=== PATIENT | male | born 1975 | race Caucasian/White ===

== ENCOUNTER 2024-02-28 02:50 | Emergency (ER) | payer BC, SELFPAY ==
[2024-02-28 02:50] VITALS: BMI 34.2
[2024-02-28 02:52] VITALS: BP 134/84
--- NOTE | 2024-02-28 03:07 | ED.GENMED ---
History of Present Illness
<LETICIA Garcia - Last Filed: 02/28/24 03:42>
General
Chief Complaint: Abdominal Pain
Time Seen by Provider: 02/28/24 03:06
History of Present Illness
History of Present Illness:
Patient is a 48 year old male with a PMH of gallstones presenting to the ED with complaints of abdominal pain x 5 hours. He said the pain started around 1000pm and has gotten progressively worse over time. He tried Aleve but it did not alleviate
symptoms. The pain is rated a 9/10 and described as sharp in the RUQ and has burning pain that radiates to the LUQ and the R flank. He stated the burning pain was constant but the sharp pain comes and goes. He admits to nausea and dry heaving but no
vomiting. His last BM was in the morning and normal, and his last meal was around 6pm which was chicken. Patient denies any fever chest pain palpitations sob changes in bm.
Patient has a PMH of gallstones which were shown on an ultrasound in October. He has a history of alcohol abuse and is on a high protein low carb diet. He takes Ozempic and has a history of bariatric surgery.
Review of Systems
<LETICIA Garcia - Last Filed: 02/28/24 03:42>
Review of Systems
Constitutional: Reports no symptoms
Respiratory: Reports no symptoms
Cardiac: Reports no symptoms
ABD/GI: Reports abdominal pain and nausea
: Reports no symptoms
Neurological: Reports no symptoms
Phy Exam
<LETICIA Garcia - Last Filed: 02/28/24 03:42>
General Physical Exam
General Presentation: well appearing
General age: appears stated age
General Habitus: normal
General Mental: alert
Cardiovascular Exam
Cardiovascular Exam: regular rate/rhythm, no edema, no gallop, no JVD and no murmur
Pulmonary Exam
Pulmonary Exam: lungs clear, no respiratory distress, no rales, chest non tender, no crackles, no rhonchi, no stridor, no wheezing and no cough
Gastrointestinal Exam
Gastrointestinal Exam: normal bowel sounds, soft, no organomegaly, no pulsatile mass, non distended, cva tenderness (R CVA tenderness ) and tender
Palpation: left upper quadrant: Moderate tenderness (RLQ pain the worst ), left lower quadrant: Mild tenderness, right upper quadrant: Moderate tenderness (RLQ pain the worst ) and right lower quadrant: Mild tenderness
Course
<LETICIA Garcia - Last Filed: 02/28/24 03:42>
Orders/Labs/Results
Orders:
Orders
02/28/24 03:14
IV Insert/Care/Rem.- Treatment PRN
02/28/24 03:15
Complete Blood Count/With Diff Urgent
Urinalysis Reflex To Culture Urgent
Date Specimen was Collected: 02/28/24
Time Specimen was Collected: 03:14
02/28/24 03:49
Ketorolac [Toradol] 30 mg IV NOW STA
Pantoprazole [Protonix IV] 40 mg IV NOW STA
02/28/24 03:50
US Abdomen Complete/Upper Urgent
Comment:
Reason For Exam: acute RUQ to R flank pain w nausea
02/28/24 04:06
Comprehensive Metabolic Panel Urgent
Comment: REDRAW
Lipase Urgent
Comment: REDRAW
Abnormal Lab Results
02/28/24 02/28/24
03:15 04:06
RBC 4.24 L 10^6/uL
(4.70-6.10)
Hgb 12.5 L g/dL
(13.0-18.0)
Hct 37.2 L %
(39.0-52.0)
RDW 16.2 H %
(11.5-14.5)
MPV 11.4 H fL
(7.4-10.4)
Absolute Neuts (auto) 6.8 H 10^3/uL
(1.4-6.5)
Lymphocytes % 18.5 L %
(20.5-51.1)
BUN 24 H mg/dl
(9-20)
Total Bilirubin 2.0 H mg/dl
(0.2-1.3)
AST 169 H U/L
(17-59)
ALT 140 H U/L
(0-50)
Urine Ketones 2+ A
(Negative)
02/28/24 03:15
02/28/24 04:06
Vital Signs
Initial and Last Documented VS:
Initial Vital Signs
Temp Pulse Resp BP Pulse Ox
98.2 F 78 24 134/84 100
02/28/24 02:52 02/28/24 02:52 02/28/24 02:52 02/28/24 02:52 02/28/24 02:52
Last Documented Vital Signs
Temp Pulse Resp BP Pulse Ox
98.2 F 64 16 116/61 99
02/28/24 02:52 02/28/24 06:24 02/28/24 06:24 02/28/24 06:24 02/28/24 06:24
<Marsha Ayers DO - Last Filed: 02/28/24 06:53>
Orders/Labs/Results
Orders:
Orders
02/28/24 03:14
IV Insert/Care/Rem.- Treatment PRN
02/28/24 03:15
Complete Blood Count/With Diff Urgent
Urinalysis Reflex To Culture Urgent
Date Specimen was Collected: 02/28/24
Time Specimen was Collected: 03:14
02/28/24 03:49
Ketorolac [Toradol] 30 mg IV NOW STA
Pantoprazole [Protonix IV] 40 mg IV NOW STA
02/28/24 03:50
US Abdomen Complete/Upper Urgent
Comment:
Reason For Exam: acute RUQ to R flank pain w nausea
02/28/24 04:06
Comprehensive Metabolic Panel Urgent
Comment: REDRAW
Lipase Urgent
Comment: REDRAW
Abnormal Lab Results
02/28/24 02/28/24
03:15 04:06
RBC 4.24 L 10^6/uL
(4.70-6.10)
Hgb 12.5 L g/dL
(13.0-18.0)
Hct 37.2 L %
(39.0-52.0)
RDW 16.2 H %
(11.5-14.5)
MPV 11.4 H fL
(7.4-10.4)
Absolute Neuts (auto) 6.8 H 10^3/uL
(1.4-6.5)
Lymphocytes % 18.5 L %
(20.5-51.1)
BUN 24 H mg/dl
(9-20)
Total Bilirubin 2.0 H mg/dl
(0.2-1.3)
AST 169 H U/L
(17-59)
ALT 140 H U/L
(0-50)
Urine Ketones 2+ A
(Negative)
02/28/24 03:15
02/28/24 04:06
Vital Signs
Initial and Last Documented VS:
Initial Vital Signs
Temp Pulse Resp BP Pulse Ox
98.2 F 78 24 134/84 100
02/28/24 02:52 02/28/24 02:52 02/28/24 02:52 02/28/24 02:52 02/28/24 02:52
Last Documented Vital Signs
Temp Pulse Resp BP Pulse Ox
98.2 F 64 16 116/61 99
02/28/24 02:52 02/28/24 06:24 02/28/24 06:24 02/28/24 06:24 02/28/24 06:24
<LETICIA Garcia - Last Filed: 02/28/24 03:42>
MDM/Problems Addressed
Differential Diagnosis Includes:
bowel obstruction, cholecystitis, pancreatitis, nephrolithiasis
MDM/Problems Addressed:
Order labs, give pain meds
<LETICIA Garcia - Last Filed: 02/28/24 03:42>
*Critical Care Note
Total Time (30-74mins, 75-104mins- exclusive of procedures): Not Applicable
<Marsha Ayers DO - Last Filed: 02/28/24 06:53>
*Radiology
Radiology exam reviewed: radiology read reviewed
*Pulse Oximetry
Patient hypoxic: no
ED Attending Note
<LETICIA Garcia - Last Filed: 02/28/24 03:42>
-
Portions of this chart may have been created with voice recognition software.� Occasional wrong word or��sound alike� substitutions may have occurred due to the inherent limitations of voice recognition software.
<Marsha Ayers DO - Last Filed: 02/28/24 06:53>
ED Attending Note
Patient seen and examined by attending physician: Yes
I performed the substantive portion of visit, reviewed & personally made and approve the management plan that is documented in note by myself or JOSE EDUARDO.: Yes
ED Attending Note:
This is a 48-year-old gentleman who has history of jqq-asarjdv-ncfjlzvdn diabetes, obesity, anxiety, prior history of alcohol abuse but has been sober for at least the past 6 to 7 years. With initiation of Ozempic 1 year ago patient has lost a
tremendous amount of weight, follows regularly with primary care physician and due to weight loss, diabetes, prior history of alcohol abuse he underwent outpatient abdominal ultrasound October of this year that was reportedly unremarkable save for
incidental gallstones. Tonight around 10 PM he developed somewhat abrupt onset of right flank pain radiating to his right upper quadrant
, Moderate and persistent accompanied with nausea, few episodes of dry heaves. Right upper quadrant pain occasionally radiates across his upper abdomen as well as across his mid back. No relief with Aleve. Pain is worse with lying supine. No
history of similar episodes of pain.
He was lifting weights yesterday as well as running but denies insightful injury.
No chest pain or cough no shortness of breath. No fever no chills, no dysuria and urgency and or hematuria.
He has been clean and sober from alcohol abuse for at least the past 6 to 7 years. No history of drug use.
Quit cigarettes 1 year ago, continues to use nicotine lozenges.
History of bariatric surgery 2003.
GENERAL: 48-year-old gentleman appears his stated age, awake and alert, pleasant, appears in no acute distress.
EYE: anicteric
NECK: Supple, nontender, no meningismus, no significant adenopathy.
ENT: oral mucosa is moist. No rhinorrhea.
CARDIAC: Regular rate and rhythm. no murmur.
LUNGS: Clear breath sounds bilaterally, no acute respiratory distress, no wheezes/rales/rhonchi
ABDOMEN: Soft, nondistended, moderate tenderness epigastric as well as right upper quadrant, no r/g, mild bilateral CVA tenderness, normoactive BS. No palpable masses.
NEUROLOGICAL: Alert and oriented x3, no focal neuro deficits. Gait is rodriges and steady.
SKIN: Warm and dry, normal color, skin intact. No rash.
MUSCULOSKELETAL: No C/C/E. peripheral pulses are full and equal b/l. No palpable tenderness.
PSYCH: Normal and appropriate interaction.
Concern for acute biliary colic, cholecystitis, pancreatitis, gastroduodenitis, kidney stone, musculoskeletal pain.
Will medicate for pain with Toradol and given IV dose of Protonix for GI protection/potential gastritis.
Will check labs and plan for abdominal ultrasound.
02/28/2024 0647 AM
Patient is currently pain-free and comfortable after IV pain medication.
CBC is normal
Chemistries show mildly elevated LFTs as well as mildly elevated total bili at 2.0. No old labs to compare.
Ultrasound shows cholelithiasis without convincing evidence of cholecystitis.
As patient is pain-free and comfortable, I suspect acute biliary colic.
Will discharge to home with recommendations he initiate a strict low-fat/nonfat diet.
Will prescribe a few Percocet as well as Zofran for as needed return of pain and if this is ineffective or if he has return of pain associated with fever, intractable vomiting recommend prompt return to the ED for further evaluation.
Discharge Plan
Departure
Patient Disposition: Home (Routine Discharge)
Date of Disposition: 02/28/24
Time of Disposition: 06:49
Patient with high blood pressure during this ER visit?: No
Condition: Good
Discharge Problem:
acute biliary colic, Cholelithiases
Instructions: Gallstones (DC), Low-fat diet
Prescriptions:
New
oxycodone-acetaminophen [Percocet] 5-325 mg Tablet
1 tab PO Q6HPRN PRN (Reason: pain) Qty: 6 0RF
ondansetron 4 mg tablet,disintegrating
4 mg PO QID PRN (Reason: nausea and vomiting) Qty: 20 0RF
Referrals:
Margaux Rae MD [Family Provider] -
Russell Britton MD [Active] - Call in 1-3 days for appt
Interventions
Interventions:
*Risk Screen - Suicide Last Done: 02/28/24 02:52
*General Assessment Last Done: 02/28/24 04:08
*Neglect/Abuse Screening Last Done: 02/28/24 02:52
*ED COVID-19 Vaccine History Last Done: 02/28/24 04:08
RK-Brfjyh-Yuboegfaqg Assessment Last Done: 02/28/24 03:26
Discharge Date and Time
Print Language: QATARI
[2024-02-28 03:27] LABS: % Basophils 0.6 % (0-2); % Eosinophils 1.5 % (0-6); % Immature Granulocytes 0.4 % (0-0.5); % Lymphocytes 18.5 % (20.5-51.1); % Monocytes 5.6 % (1.7-9.3); % Neutrophils 73.4 % (42.2-75.2); Absolute Basophils 0.1 10^3/uL (0-0.2); Absolute Eosinophils 0.1 10^3/uL (0-0.7); Absolute Lymphocytes 1.7 10^3/uL (1.2-3.4); Absolute Monocytes 0.5 10^3/uL (0.1-0.6); Absolute Neutrophils 6.8 10^3/uL (1.4-6.5); Hematocrit 37.2 % (39.0-52.0); Hemoglobin 12.5 g/dL (13.0-18.0); Mean Corp Hgb Conc. 33.6 g/dL (33.0-37.0); Mean Corpuscular Hgb 29.5 pg (27.0-31.0); Mean Corpuscular Volume 87.7 fL (80.0-94.0); Mean Platelet Volume 11.4 fL (7.4-10.4); Nucleated Red Blood Cells % 0 % (-); Platelet Count 249 10^3/uL (130-400); Red Blood Cell Count 4.24 10^6/uL (4.70-6.10); Red Cell Dist. Width 16.2 % (11.5-14.5); White Blood Cell Count 9.3 10^3/uL (4.8-10.8)
[2024-02-28 03:38] LABS: Urine Albumin Negative (Neg - Trace); Urine Bilirubin Negative (Negative); Urine Character Clear (Clear); Urine Color Yellow; Urine Glucose Negative (Negative); Urine Ketone 2+ (Negative); Urine Leukocyte Negative (Negative); Urine Nitrite Negative (Negative); Urine Occult Blood Negative (Negative); Urine Urobilinogen Negative (Neg - 1+)
[2024-02-28] MEDS: TORADOL 30 MG IV (03:59)
[2024-02-28] MEDS: PROTONIX IV 40 MG IV (03:59)
[2024-02-28 04:00] VITALS: BP 115/69
[2024-02-28 04:39] LABS: ALT (SGPT) 140 U/L (0-50); AST (SGOT) 169 U/L (17-59); Albumin 4.1 g/dl (3.5-5.0); Alkaline Phosphatase 106 U/L (38-126); Blood Urea Nitrogen 24 mg/dl (9-20); Calcium 9.9 mg/dl (8.4-10.2); Carbon Dioxide 24 mmol/L (22-30); Chloride 103 mmol/L (98-107); Estimated Creatinine Clearance > 125 ml/min; Glucose 90 mg/dl (70-99); Lipase 270 U/L (23-300); Potassium 4.1 mmol/L (3.5-5.1); Sodium 140 mmol/L (135-145); Total Protein 6.6 g/dl (6.3-8.2); eGFR > 60.00
[2024-02-28 05:14] VITALS: BP 118/65
[2024-02-28 06:24] VITALS: BP 116/61
== END 2024-02-28 07:08 | disposition home or self-care (01) ==
LOC: EMR 02:50
PROVIDERS: EMERGENCY PHYSICIAN Emergency Medicine; FAMILY PHYSICIAN Family Medicine
DX: K80.20 Calculus of gallbladder without cholecystitis without obstruction (principal); K80.50 Calculus of bile duct without cholangitis or cholecystitis without obstruction; Z87.891 Personal history of nicotine dependence
CPT/HCPCS: 99284; 96374; 96375; 76700; 80053; 81003; 83690; 85025

== ENCOUNTER 2024-03-18 06:38 | Day surgery (SDC) | payer BC, SELFPAY ==
[2024-03-18] VITALS (12 sets, daily range): BP systolic 125–152; BP diastolic 79–95; BMI 35.6
[2024-03-18] MEDS: NORMOSOL-R/PLASMALYTE-A 1000 IV (12:41)
[2024-03-18] MEDS: TYLENOL 1000 MG PO (12:41)
[2024-03-18 12:59] LABS: Glucose - Point of Care 88 mg/dl (70-99)
--- NOTE | 2024-03-18 13:57 | W.SUR.PREOP ---
Pre-Operative Surgical Note
-
I have examined this patient prior to the performance of the scheduled procedure.
The patient's condition is unchanged from the time of the current History and
Physical and the patient is able to undergo the scheduled procedure.
--- NOTE | 2024-03-18 15:32 | W.IMMPOSTOP ---
Surgical Immed Post Op Note
-
Primary Surgeon: Tom Montano MD
Assisting Surgeon: None
Pre-op Diagnosis: Biliary colic
Post-op Diagnosis: Same
Procedure Performed: Laparoscopic cholecystectomy with cholangiogram
Anesthesia Type: General
Specimen / Cultures: Gallbladder
Estimated Blood Loss: 7 cc
Complications: None
Operative Findings: Minimal flimsy adhesions to the infundibulum of the gallbladder. Critical view of safety obtained prior to a cholangiogram which demonstrated no distal filling defects and normal biliary anatomy. Duct ligated with a clip
followed by a 0 PDS Endoloop. None Routine AM Advance to Regular as tolerated q4h Hold Therapeutic AC Ad Heather Routine None RNF
[2024-03-18 15:33] LABS: Glucose - Point of Care 118 mg/dl (70-99)
--- NOTE | 2024-03-18 15:33 | OR.RPT ---
Operative Report
Operative Report
Patient Name: Justyn Vega
: 1975
Date of Operation: 03/18/2024
Preoperative Diagnosis: Symptomatic Cholelithiasis
Postoperative Diagnosis: Same
Procedure(s):
Laparoscopic Cholecystectomy with Cholangiogram
Surgeon(s):
Dr. Montano
Cut Tobacco Bulker(s):
KALEY Noyola
Anesthesia: General
Estimated Blood Loss: 7 cc
Urine Output: None
Drains/Lines/Implants: None
Specimens:
1. Gallbladder and contents
HPI/Surgical Indications:
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 Exam, labs and imaging are consistent with symptomatic
cholelithiasis. Risks/Benefits/Alternatives were discussed at length, and the patient agreed to proceed with surgery.
Operative Findings: Minimal flimsy adhesions to the infundibulum of the gallbladder. Critical view of safety obtained prior to a cholangiogram which demonstrated no distal filling defects and normal biliary anatomy. Duct ligated with a clip
followed by a 0 PDS Endoloop.
Procedure Description:
The patient was brought to the Operating Room and placed in the supine position. IV antibiotics were infused and sequential compression devices were confirmed to be on. Following uneventful induction of general endotracheal anesthesia, an
orogastric tube was placed. The abdomen was prepped and draped in the usual sterile fashion. The abdomen was entered using a left subcostal Veress technique which required a single pass followed by a 5 mm Optiview trocar. Pneumoperitoneum to 15
mmHg pressure was obtained without difficulty and we confirmed that no injury had occurred during our entry after running the bowel and noting some area in the mesentery of the Christofer limb. The patient was positioned in reverse trendelenberg and
rotated with the right side up slightly. Two 5mm trocars were then placed along the right subcostal margin, followed by a 12 mm port in the epigastrium. A locking grasping forceps was placed on the fundus of the gallbladder where it was then
retracted cephalad and to the right. Using appropriate grasping instruments, the fundus adhesions overlying the infundibulum of the gallbladder were dissected and the peritoneum overlying the triangle of Calot was incised. The cystic
duct/gallbladder junction was identified, dissected circumferentially. The cystic artery was identified medially and was dissected circumferentially. A critical view was obtained. A clip was then placed on the cystic duct/gallbladder junction and
an intraoperative cholangiogram performed using fluoroscopy, which showed good flow of dye into the duodenum. There were no intra- or extrahepatic bile duct filling defects. The biliary anatomy appeared normal. Following completion of the
cholangiogram, the catheter was removed. Two clips were then placed proximally on the cystic duct and the duct divided. Two clips were placed proximally and one distally on the cystic artery, and the artery was divided. Remaining soft tissue
attachments of the gallbladder to the liver bed were then divided using electrocautery. There was some minimal spillage of bile, but no spillage of stones. The gallbladder bed was inspected and excellent hemostasis was obtained. The gallbladder
was extracted through the 12 mm trocar site using an endocatch bag. The abdomen was again irrigated and excellent hemostasis was assured we also turned our attention to the left upper quadrant to ensure that no injury occurred to the small bowel in
the area. The 12 mm trocar site was closed using a figure of 8 of 0 PDS. All remaining trocars were then removed and the pneumoperitoneum was evacuated. All trocar sites were closed at the skin level using 4-0 Monocryl followed by Dermabond.
Overall, the patient tolerated the procedure well and was taken to the Recovery Room postoperatively in stable condition.
I was the attending physician and performed the procedure with assistance from the PA above. The assistance of KALEY Noyola was required due to the complexity of the procedure. During the procedure Eulalia assisted with retraction, resection, and
closure of the wound. I was present for all portions of the case, excluding skin closure.
Tom Montano MD
[2024-03-18] MEDS: ZOFRAN 4 MG IV (15:37)
[2024-03-18] MEDS: SUBLIMAZE 50 MCG IV (16:05)
[2024-03-18] MEDS: MOTRIN 600 MG PO (17:38)
== END 2024-03-18 17:50 | disposition home or self-care (01) ==
LOC: SDS 06:38
PROVIDERS: ATTENDING PHYSICIAN Surgery
DX: K80.10 Calculus of gallbladder with chronic cholecystitis without obstruction (principal)
CPT/HCPCS: 47563; 88304; 74300; 76000; 82962

== ENCOUNTER 2024-06-09 06:20 | Day surgery (SDC) | payer BC, SELFPAY ==
[2024-06-09 10:28] LABS: Glucose - Point of Care 81 mg/dl (70-99)
== END 2024-06-09 11:48 | disposition home or self-care (01) ==
LOC: GI 06:20
PROVIDERS: ATTENDING PHYSICIAN Internal Medicine Gastroenterology
DX: Z12.11 Encounter for screening for malignant neoplasm of colon (principal); K57.30 Diverticulosis of large intestine without perforation or abscess without bleeding; K64.8 Other hemorrhoids; D12.2 Benign neoplasm of ascending colon; D12.4 Benign neoplasm of descending colon
CPT/HCPCS: 45385; 88305; 82962

== ENCOUNTER 2024-10-12 16:46 | Emergency (ER) | payer BC, SELFPAY ==
[2024-10-12 16:56] VITALS: BP 120/68
[2024-10-12 17:27] LABS: % Basophils 1.7 % (0-2); % Eosinophils 3.2 % (0-6); % Immature Granulocytes 0.2 % (0-0.5); % Lymphocytes 38.4 % (20.5-51.1); % Monocytes 6.3 % (1.7-9.3); % Neutrophils 50.2 % (42.2-75.2); Absolute Basophils 0.1 10^3/uL (0-0.2); Absolute Eosinophils 0.2 10^3/uL (0-0.7); Absolute Lymphocytes 2.1 10^3/uL (1.2-3.4); Absolute Monocytes 0.3 10^3/uL (0.1-0.6); Absolute Neutrophils 2.7 10^3/uL (1.4-6.5); Hematocrit 39.9 % (39.0-52.0); Hemoglobin 13.6 g/dL (13.0-18.0); Mean Corp Hgb Conc. 34.1 g/dL (33.0-37.0); Mean Corpuscular Volume 93.9 fL (80.0-94.0); Mean Platelet Volume 10.8 fL (7.4-10.4); Nucleated Red Blood Cells % 0 % (-); Platelet Count 216 10^3/uL (130-400); Red Blood Cell Count 4.25 10^6/uL (4.70-6.10); Red Cell Dist. Width 13.7 % (11.5-14.5); White Blood Cell Count 5.4 10^3/uL (4.8-10.8)
[2024-10-12 17:36] LABS: ALT (SGPT) 52 U/L (0-50); AST (SGOT) 36 U/L (17-59); Albumin 4.2 g/dl (3.5-5.0); Alkaline Phosphatase 68 U/L (38-126); Blood Urea Nitrogen 16 mg/dl (9-20); Calcium 9.8 mg/dl (8.4-10.2); Carbon Dioxide 30 mmol/L (22-30); Chloride 103 mmol/L (98-107); Glucose 91 mg/dl (70-99); Potassium 4.6 mmol/L (3.5-5.1); Sodium 139 mmol/L (135-145); Total Bilirubin 1.9 mg/dl (0.2-1.3); eGFR > 60.00
[2024-10-12 17:49] LABS: Troponin I < 0.012 ng/ml
[2024-10-12 19:49] VITALS: BMI 28.6
--- NOTE | 2024-10-12 19:54 | ED.GENMED ---
History of Present Illness
General
Chief Complaint: Breathing Problem
Source: patient
Exam Limitations: none
Time Seen by Provider: 10/12/24 18:47
Nursing documentation reviewed up to this point in time: agreed with
History of Present Illness
History of Present Illness:
49-year-old male with history as noted presents to the emergency room for shortness of breath. Patient reports symptoms have been ongoing for the past week or 2. He reports that he has severe fatigue 'like I am out of gas.' He says that he is
short of breath. He says he has had some vague right scapular/chest pain. Reports general malaise. Denies any fever or chills. Denies URI symptoms. He has had some nausea no vomiting. No diarrhea. He has not had any black or bloody stools�he
reports a history of bleeding ulcer and he felt similarly when he was anemic. He does note that he is under a lot of stress at work recently. Denies any history of heart issues. Denies any recent travel or history of DVT/PE. He does have a
history of alcohol use but reports that he has not been drinking for quite some time.
Review of Systems
Review of Systems
All Other Systems: ROS reviewed and negative except as documented in HPI and ROS
Constitutional: Reports fatigue; Denies fever
EENT: Denies sore throat or runny nose
Respiratory: Reports trouble breathing; Denies cough
Cardiac: Reports chest pain; Denies palpitations
ABD/GI: Reports nausea; Denies abdominal pain or vomiting
: Denies flank pain
Musculoskeletal: Reports back pain (Scapular pain); Denies neck pain
Phy Exam
Physical Exam
Physical Exam:
General: Awake, alert, oriented x3; no acute distress
Head: Normocephalic, atraumatic
Eyes: Conjunctiva normal, sclera anicteric
Throat: Airway intact, handling secretions
Neck: Trachea midline, supple without meningismus
Lungs: Clear to auscultation bilaterally, no wheezing, rales, rhonchi
Heart: Regular rate and rhythm, no murmurs, gallops, or rubs
Abd: Soft, non distended, nontender
Back: No scapular tenderness
Neuro: No gross deficits
Skin: no rash in area of concern
Extremities: No edema in extremities, no calf tenderness, equal pulses in all extremities
Scores
Heart Failure Risk
Heart Failure Risk Score: Not Applicable
Heart Score for Chest Pain Patients
STEMI patient?: Not applicable
Withdrawal Assessment of Alcohol
Withdrawal Assessment Completed?: Not applicable
Course
Orders/Labs/Results
Orders:
Orders
10/12/24 17:01
Electrocardiogram (*1) Urgent
Reason for Study: Shortness of Breath
EKG- Treatment ONCE
10/12/24 17:11
Complete Blood Count/With Diff Urgent
Comprehensive Metabolic Panel Urgent
Troponin I Urgent
10/12/24 19:09
CT Chest PE Study Urgent
Comment:
Reason For Exam: right scapular pain, SOB
10/12/24 19:51
Troponin I Urgent
Abnormal Lab Results
10/12/24
17:11
RBC 4.25 L 10^6/uL
(4.70-6.10)
MCH 32.0 H pg
(27.0-31.0)
MPV 10.8 H fL
(7.4-10.4)
Total Bilirubin 1.9 H mg/dl
(0.2-1.3)
ALT 52 H U/L
(0-50)
10/12/24 17:11
10/12/24 17:11
Vital Signs
Initial and Last Documented VS:
Initial Vital Signs
Temp Pulse Resp BP Pulse Ox
36.9 C 76 18 120/68 98
10/12/24 16:56 10/12/24 16:56 10/12/24 16:56 10/12/24 16:56 10/12/24 16:56
Last Documented Vital Signs
Temp Pulse Resp BP Pulse Ox
36.9 C 68 17 120/68 99
10/12/24 16:56 10/12/24 19:34 10/12/24 19:34 10/12/24 16:56 10/12/24 19:58
MDM/Problems Addressed
Differential Diagnosis Includes:
Anemia, pneumonia, pneumothorax, pulmonary embolism, angina/ACS considered less likely based on history
MDM/Problems Addressed:
49-year-old male presents to the emergency room for evaluation of shortness of breath, fatigue, right chest/scapular pain. Vitals and exam as above. Plan Place an IV check labs including a CBC and a CMP, troponins. Check EKG. Check CT chest.
Monitor on telemetry reassess after the above.
Labs reviewed: CBC shows no anemia hemoglobin 13.6. CMP no clinically significant abnormalities. EKG shows sinus rhythm with no acute ischemia. His troponin is undetectable x 1�will repeat. CT chest pending.
*Radiology
Radiology exam reviewed: radiology read reviewed
*Pulse Oximetry
Patient hypoxic: no
*EKG
Interpreted by ED Provider?: Yes
Heart Rate: 68
Rate: normal
Rhythm: sinus
[place]: normal axis
Interval: normal interval
QRS Pattern: normal QRS
Ischemia: no ischemia
*Critical Care Note
Total Time (30-74mins, 75-104mins- exclusive of procedures): Not Applicable
Data Reviewed
Source: patient
ED Attending Note
-
Portions of this chart may have been created with voice recognition software.� Occasional wrong word or��sound alike� substitutions may have occurred due to the inherent limitations of voice recognition software.
Discharge Plan
Departure
Prescriptions:
No Action
multivitamin Tablet
1 tab PO DAILY
metformin 1,000 mg Tablet
1,000 mg PO BID
buspirone 10 mg Tablet
10 mg PO DAILY
escitalopram oxalate [Lexapro] 20 mg Tablet
20 mg PO DAILY
Ozempic 2 mg/dose (8 mg/3 mL) Pen Injector
2 mg SC QWEEK
Rx Instructions:
Q Sunday
mecobalamin (vitamin B12)
2 gummy PO DAILY
acetaminophen 325 mg tablet
650 mg PO Q6HPRN PRN (Reason: mild pain) Qty: 14 0RF
tramadol 50 mg tablet
25 mg PO Q6HPRN PRN (Reason: severe pain/breakthrough pain) Qty: 8 0RF
ibuprofen 600 mg tablet
600 mg PO Q6H PRN (Reason: pain) Qty: 14 0RF
Referrals:
Margaux Rae MD [Family Provider] -
Interventions
Interventions:
*Risk Screen - Suicide Last Done: 10/12/24 16:56
*General Assessment Last Done: 10/12/24 16:56
*Neglect/Abuse Screening Last Done: 10/12/24 16:56
*ED- Fall Risk Assessment Last Done: 10/12/24 19:34
*ED COVID-19 Vaccine History Last Done: 10/12/24 19:34
ED- Cardiac Assessment Last Done: 10/12/24 19:58
ED- Pulmonary Assessment Last Done: 10/12/24 19:58
Discharge Date and Time
Print Language: [id number]
[2024-10-12 20:20] LABS: Troponin I < 0.012 ng/ml
== END 2024-10-12 22:12 | disposition home or self-care (01) ==
LOC: EMR 16:46
PROVIDERS: EMERGENCY PHYSICIAN Emergency Medicine; FAMILY PHYSICIAN Family Medicine
DX: R06.02 Shortness of breath (principal); R53.83 Other fatigue; R53.81 Other malaise; R07.89 Other chest pain; R11.0 Nausea; M62.81 Muscle weakness (generalized); M25.511 Pain in right shoulder; M54.9 Dorsalgia, unspecified; R56.9 Unspecified convulsions; G47.30 Sleep apnea, unspecified; E11.9 Type 2 diabetes mellitus without complications; F41.9 Anxiety disorder, unspecified; Z56.6 Other physical and mental strain related to work; Z79.84 Long term (current) use of oral hypoglycemic drugs; Z87.11 Personal history of peptic ulcer disease; Z98.84 Bariatric surgery status; Z88.2 Allergy status to sulfonamides
CPT/HCPCS: 99284; 71275; 80053; 84484; 85025; 93005; Q9967